=== PATIENT | female | born 1990 | race Caucasian/White ===

== ENCOUNTER 2016-08-23 10:00 | Observation (INO) | payer OTHER ==
[~2016-08-23] VITALS: Ht 160 cm; Wt 92.1 kg
[2016-08-23] MEDS ORDERED: PREN1TAB80 PO (10:45)
[2016-08-23 11:17] VITALS: BP 121/69
[2016-08-23 11:28] LABS: GLUCOSE,POINT OF CARE 76 MG/DL (70-110)
== END 2016-08-23 11:10 | disposition home or self-care (01) ==
LOC: 4S 10:00
PROVIDERS: ADMIT Obstetrics & Gynecology; ATTEND Obstetrics & Gynecology
DX: O24.410 Gestational diabetes mellitus in pregnancy, diet controlled (principal); Z3A.35 35 weeks gestation of pregnancy
CPT/HCPCS: 59025; 82962; G0378

== ENCOUNTER 2016-08-26 13:00 | Observation (INO) | payer OTHER ==
[~2016-08-26 13:00] MED LIST: PREN1TAB80 PO
[2016-08-26 13:12] VITALS: BP 123/69
[2016-08-26 13:41] LABS: GLUCOSE,POINT OF CARE 80 MG/DL (70-110)
== END 2016-08-26 13:45 | disposition home or self-care (01) ==
LOC: 4S 13:00
PROVIDERS: ADMIT Obstetrics & Gynecology; ATTEND Obstetrics & Gynecology
DX: O24.419 Gestational diabetes mellitus in pregnancy, unspecified control (principal); Z3A.36 36 weeks gestation of pregnancy
CPT/HCPCS: 59025; 82962; G0378

== ENCOUNTER 2016-08-30 12:55 | Observation (INO) | payer OTHER ==
[~2016-08-30] VITALS: Ht 162.6 cm; Wt 91.6 kg
[2016-08-30] MEDS ORDERED: PREN1TAB80 PO (13:18)
[2016-08-30 13:19] VITALS: BP 122/68
[2016-08-30 14:17] LABS: GLUCOSE,POINT OF CARE 143 MG/DL (70-110)
== END 2016-08-30 14:35 | disposition home or self-care (01) ==
LOC: 4S 12:55
PROVIDERS: ADMIT Obstetrics & Gynecology; ATTEND Obstetrics & Gynecology
DX: O24.419 Gestational diabetes mellitus in pregnancy, unspecified control (principal); Z3A.36 36 weeks gestation of pregnancy
CPT/HCPCS: 59025; 82962; G0378

== ENCOUNTER 2016-09-02 13:20 | Observation (INO) | payer OTHER ==
[~2016-09-02] VITALS: Ht 165.1 cm; Wt 92.1 kg
[2016-09-02 13:37] VITALS: BP 118/61
[2016-09-02 13:56] LABS: GLUCOSE,POINT OF CARE 157 MG/DL (70-110)
== END 2016-09-02 14:20 | disposition home or self-care (01) ==
LOC: 4S 13:20
PROVIDERS: ADMIT Obstetrics & Gynecology; ATTEND Obstetrics & Gynecology
DX: O24.419 Gestational diabetes mellitus in pregnancy, unspecified control (principal); Z3A.37 37 weeks gestation of pregnancy
CPT/HCPCS: 59025; 82962; G0378

== ENCOUNTER 2016-09-05 16:22 | Observation (INO) | payer OTHER ==
[2016-09-05 16:50] VITALS: BP 124/72
[2016-09-05 16:52] LABS: GLUCOSE,POINT OF CARE 102 MG/DL (70-110)
== END 2016-09-05 17:35 | disposition home or self-care (01) ==
LOC: 4S 16:22 → NSY 16:22
PROVIDERS: ADMIT Obstetrics & Gynecology; ATTEND Obstetrics & Gynecology
DX: O24.410 Gestational diabetes mellitus in pregnancy, diet controlled (principal); Z3A.37 37 weeks gestation of pregnancy
CPT/HCPCS: 59025; 82948; 82962; G0378

== ENCOUNTER 2016-09-10 11:40 | Observation (INO) | payer OTHER ==
[~2016-09-10] VITALS: Ht 162.6 cm; Wt 92.5 kg
[2016-09-10 12:09] VITALS: BP 126/70
[2016-09-10 16:27] LABS: GLUCOSE COMMENT 1 Juice/Food/D50 Given; GLUCOSE COMMENT 2 Doctor Notified; GLUCOSE,POINT OF CARE 67 MG/DL (70-110)
== END 2016-09-10 12:50 | disposition home or self-care (01) ==
LOC: 4S 11:40
PROVIDERS: ADMIT Obstetrics & Gynecology; ATTEND Obstetrics & Gynecology
DX: O24.419 Gestational diabetes mellitus in pregnancy, unspecified control (principal); Z3A.38 38 weeks gestation of pregnancy
CPT/HCPCS: 59025; 82962; G0378

== ENCOUNTER 2016-09-12 16:30 | Observation (INO) | payer OTHER ==
[~2016-09-12] VITALS: Ht 162.6 cm; Wt 92.1 kg
[2016-09-12 17:00] LABS: BASOPHILS # (AUTO) 0.03 K/uL (0.00-0.20); BASOPHILS % (AUTO) 0.4 % (0.0-2.0); EOSINOPHILS # (AUTO) 0.02 K/uL (0.00-0.70); HEMATOCRIT 36.9 % (36-46); HEMOGLOBIN 12.4 g/dL (12.0-16.0); LYMPHOCYTES # (AUTO) 2.4 K/uL (1.0-4.8); LYMPHOCYTES % (AUTO) 30.9 % (22.0-44.0); MEAN CORPUSCULAR HEMOGLOBIN 30.7 pg (26.0-34.0); MEAN CORPUSCULAR HGB CONC 33.7 G/dL (31.0-37.0); MEAN CORPUSCULAR VOLUME 91 fL (80-100); MONOCYTES # (AUTO) 0.7 K/uL (0.1-1.0); MONOCYTES % (AUTO) 8.9 % (2.0-9.0); NEUTROPHILS # (AUTO) 4.6 K/uL (1.8-7.7); NEUTROPHILS % (AUTO) 59.7 % (40.0-70.0); RED BLOOD CELL COUNT(AUTO) 4.05 MIL/uL (4.00-5.20); WHITE BLOOD COUNT (AUTO) 7.8 K/uL (4.5-11.0)
[2016-09-12 17:05] LABS: ANION GAP 9 mmol/L (8-16); CALCIUM, TOTAL 9.4 mg/dL (8.8-10.5); CARBON DIOXIDE 25 mmol/L (22-29); CHLORIDE 101 mmol/L (98-107); CREATININE 0.64 mg/dL (0.60-1.30); GLOMERULAR FILTR. RATE CALC > 60 mL/min (>60); POTASSIUM 3.9 mmol/L (3.5-5.1); SODIUM SERUM 135 mmol/L (136-145); UREA NITROGEN, BLOOD 8 mg/dL (7-18)
[2016-09-12 17:10] LABS: ALANINE AMINOTRANSFERASE 18 U/L (12-78); ALBUMIN 2.7 g/dL (3.4-5.0); ASPARTATE AMINOTRANSFERASE 16 U/L (15-37); BILIRUBIN,TOTAL 0.2 mg/dL (0.1-1.0); TOTAL PROTEIN, SERUM 6.7 g/dL (6.4-8.2); URIC ACID 4.4 mg/dL (2.6-7.2)
[2016-09-15] MEDS ORDERED: IBUP-1547 PO (11:29)
[2016-09-15] MEDS ORDERED: DSS100 PO (11:30)
== END 2016-09-12 18:10 | disposition home or self-care (01) ==
LOC: 4S 16:30
PROVIDERS: ADMIT Obstetrics & Gynecology; ATTEND Obstetrics & Gynecology
DX: O26.893 Other specified pregnancy related conditions, third trimester (principal); R10.9 Unspecified abdominal pain; R03.0 Elevated blood-pressure reading, without diagnosis of hypertension; Z3A.38 38 weeks gestation of pregnancy
CPT/HCPCS: 36415; 59025; 80053; 84550; 85025; G0378